=== PATIENT | female | born 1980 | race African-American/Black ===

== ENCOUNTER 2017-04-22 11:35 | Emergency (ER) | payer MEDICAID ==
[~2017-04-22 11:35] MED LIST: ALBU0.086 INH; ALBU6.7H INH; ALBU8I INH; PULM90IN
--- NOTE | 2017-04-22 13:11 | PD ---
HPI Date Seen: Apr 22, 2017 Time Seen: 13:00 Travel History International Travel<30 Days: No Contact w/Intl Traveler<30Days: No Known Affected Area: No History of Present Illness HPI Mrs. Sheffield is a 36-year-old at 29/6 weeks gestation presenting after referral by her provider after a concerning ultrasound result. States that she went to the [facility] center today ([facility]) where they said she needed to see Dr. Posada here at the hospital. She had an ultrasound done Friday in [place]. They said it was abnormal and that one twin was bigger. Otherwise she has no complaints. No leakage fluids, no contractions, no vaginal bleeding, no dysuria, no chest pain/shortness of breath/leg pain. Positive movement. Weeks Gestation: 29 Para: 3 : 4 History Past Medical History Narrative Medical Asthma Iron-deficiency anemia Obstetric History Obstetric History LMP September 30, 2016 First baby was term via , second baby was born at 35 weeks via due to labor, third baby was born term via Unsure of what control she use after delivery. Thinking about Nexplanon Past Surgical History Narrative Surgical [place] teeth extraction Family History Family History: Negative Social History Narrative Social History Lives with her and children in [place] Works at [employer] Denies alcohol, tobacco, or illicit drug use Alcohol Use: No Tobacco Use: No Substance Abuse: No Allergies-Medications (Allergen,Severity, Reaction): Coded Allergies: shellfish derived (Verified Allergy, Severe, throat swelling, 04/22/17) Uncoded Allergies: brazil nuts (Allergy, Severe, facial swelling, 04/22/17) Home Meds Active Scripts Albuterol Sulfate (Proventil Ud 0.083% (2.5 Mg/3 Ml)) 2.5 Mg/3 Ml Inha, 2.5 MG INH Q6 for WHEEZING, #30 Prov:Artur Back MD 07/29/13 Albuterol Sulfate (Proventil Hfa) 6.7 Gm Aero, 2 PUFF INH Q4 Y for WHEEZING, #1 * SHAKE WELL BEFORE USE * Prov:Artur Back MD 07/29/13 Reported Medications Albuterol Sulfate (Proventil Ud 0.083% (2.5 Mg/3 Ml)) 2.5 Mg/3 Ml Inha, 2.5 MG INH Q4, #30 BOX 07/29/13 Budesonide (Inhalation) (Pulmicort Flexhaler) 90 Mcg Inh 07/29/13 Albuterol Sulfate 8 GM Inhaler (Ventolin Hfa) 8 Gm Aero, 2 PUFF INH Q4, #1 BOX * SHAKE WELL BEFORE USE * 07/29/13 Review of Systems General / Constitutional: No: Fever, Chills Eyes: No: Blurred Vision HENT: No: Headaches Cardiovascular: No: Chest Pain or Discomfort, Palpitations Respiratory: No: Cough, Short of Breath Gastrointestinal: Nausea, No: Abdominal Pain Genitourinary: No: Dysuria Musculoskeletal: No: Weakness Skin: No Rash Neurologic: No: Dizziness, Syncope Physical Exam Narrative GENERAL: Well-nourished, well-developed patient. SKIN: Warm and dry. HEAD: Normocephalic and atraumatic. EYES: No scleral icterus. No injection or drainage. ENT: No nasal drainage noted. Mucous membranes pink. Airway patent. NECK: Supple, trachea midline. No JVD. CARDIOVASCULAR: Regular rate and rhythm without murmurs, gallops, or rubs. RESPIRATORY: Breath sounds equal bilaterally. No accessory muscle use. BREASTS: Bilateral exam showed no masses , no retractions, no nipple discharge. ABDOMEN/GI: Abdomen soft, non-tender, bowel sounds present, no rebound, no guarding Gravid to 29 weeks size FHT's: Category: 1 Baseline: 130s for both babies Reactive: yes Variability: moderate Decels: none EXTREMITIES: No cyanosis or edema. BACK: Nontender without obvious deformity. No CVA tenderness. NEUROLOGICAL: Awake and alert. Motor and sensory grossly within normal limits. Five out of 5 muscle strength in all muscle groups. Normal speech. Data Data Vital Signs Reviewed: Yes Orders Orders Vital Signs (Adult) .ON ADMISSION (04/22/17 12:25) ^ Labor Status (04/22/17 12:25) ^ Non Stress Test (04/22/17 12:25) Us Ob Bpp Wo Nst (04/22/17 12:25) MDM Plan Mrs. Sheffield is a 36-year-old at 29/6 weeks gestation presenting due to referral by provider. -FHT shows category 1 tracing -Diagnostic imaging report from 04/18/17 shows that Twin A had a estimated gestational age of 29/5 weeks. Twin B had a estimated gestational age of 20/5 weeks. -Will obtain new diagnostic ultrasound -Patient needs to be referred to [facility] due to advanced maternal age and multiples Disposition: 01 DISCHARGE HOME Condition: Stable Deb Powell MD R1 Apr 22, 2017 13:11
--- NOTE | 2017-04-22 16:35 | PD ---
History of Present Illness History of Present Illness [facility] Attending NST report Indications: IUP at 29 weeks, twin gestation, possible IUGR, advanced maternal age heart tones: FHT A 120s-130s with moderate long-term variability, good accelerations, no repetitive decelerations. heart tones are reassuring and appropriate for gestational age as well as reactive for gestational age. FHT B 130s with moderate long-term variability, good accelerations, no repetitive decelerations. heart tones are reassuring and appropriate for gestational age as well as reactive for gestational age Final Dx: IUP at 29 weeks, twin gestation, possible IUGR, advanced maternal age F/U: As per MF patient is to have twice weekly testing on Tuesdays and Fridays. She will be scheduled for biophysical profile in 3 days. In the meantime she's [facility] Dayami Posada MD Apr 22, 2017 16:35
--- NOTE | 2017-04-22 16:37 | PD ---
[facility] Plan BTL counseling Patient had indicated she was interested in permanent surgical sterilization. The patient is a 36-year-old and this is a 20 gestation . There is benefits and alternatives to permanent surgical sterilization were discussed with the patient including but not limited to the risk of tubal regret , the reversible and permanent nature of the procedure, risk of failure of approximately 1% with the associated risk of an ectopic that may require emergent intervention, and the inability have further biological children. We discussed alternatives at length including but not limited long- term reversible contraceptive methods. We discussed that the patient may change her mind any point up until the tubal ligation has been performed. We discussed that the tubal ligation could be performed at the time of delivery. We discussed that if she delivers vaginally she could elect to have the tubal ligation as an interval procedure. All of her questions were answered and the tubal consent was signed today. The patient was given 2 photocopies and a copy is to be faxed to her primary obstetrical office as well as scanned into the computer. We discussed that the state requires tubal papers to be signed greater than 30 days in advance that if she has not signed the papers in this manner time she will be ineligible for a tubal ligation. She did sign the papers today as noted above. Diagnosis Diagnosis: Primary Impression: 29 weeks gestation of Additional Impressions: IUGR (intrauterine growth restriction) affecting care of mother Twin Disposition: 01 DISCHARGE HOME Condition: Good Patient Instructions: General Instructions Departure Forms: Tests/Procedures Dayami Posada MD Apr 22, 2017 16:37
== END 2017-04-22 16:44 | disposition home or self-care (01) ==
LOC: HOBED 11:35
DX: O36.5930 Maternal care for other known or suspected poor fetal growth, third trimester, not applicable or unspecified (principal); O30.003 Twin pregnancy, unspecified number of placenta and unspecified number of amniotic sacs, third trimester; O09.523 Supervision of elderly multigravida, third trimester; Z3A.29 29 weeks gestation of pregnancy
CPT/HCPCS: 76816; 76819; 76820; 76821; 99284

== ENCOUNTER 2017-04-25 12:24 | Emergency (ER) | payer MEDICAID ==
--- NOTE | 2017-04-25 13:37 | PD ---
HPI Chief Complaint deceleration Date Seen: Apr 25, 2017 Time Seen: 13:15 (Deb Powell MD R1) Travel History International Travel<30 Days: No Contact w/Intl Traveler<30Days: No Known Affected Area: No (Deb Powell MD R1) History of Present Illness HPI Mrs. Sheffield is a 36-year-old at 30/2 weeks gestation presenting due to variable decelerations of twin A at OB diagnostics. She was just seen in the ED on 04/22 due to inconsistent states between twin A and twin B on an ultrasound done outside hospital. Diagnostic report at that time, 04/22, showed both twins measuring at about 28 weeks. Diagnosis of IUGR versus wrong dates. The patient has no complaints at this time. No vaginal bleeding, no leakage of fluids, no contractions, no dysuria, no chest pain/shortness of breath/leg pain. She does have positive movement Weeks Gestation: 30 Para: 3 : 4 Last Menstrual Period: Sep 25, 2016 (Deb Powell MD R1) History Past Medical History Narrative Medical Asthma Iron deficiency anemia (Deb Powell MD R1) Obstetric History Obstetric History All vaginal deliveries Last menstrual period September 25, 2016 (Deb Powell MD R1) Past Surgical History Narrative Surgical [place] teeth extraction (Deb Powell MD) Family History Family History: Negative (Deb Powell MD) Social History Narrative Social History Lives with and her children in [place] Works at [employer] Denies alcohol, tobacco, or illicit drug use Alcohol Use: No Tobacco Use: No Substance Abuse: No (Deb Powell MD R1) Allergies-Medications (Allergen,Severity, Reaction): Coded Allergies: shellfish derived (Verified Allergy, Severe, throat swelling, 04/22/17) Uncoded Allergies: brazil nuts (Allergy, Severe, facial swelling, 04/22/17) Home Meds Active Scripts Albuterol Sulfate (Proventil Ud 0.083% (2.5 Mg/3 Ml)) 2.5 Mg/3 Ml Inha, 2.5 MG INH Q6 for WHEEZING, #30 Prov:Artur Back MD 07/29/13 Albuterol Sulfate (Proventil Hfa) 6.7 Gm Aero, 2 PUFF INH Q4 Y for WHEEZING, #1 * SHAKE WELL BEFORE USE * Prov:Artur Back MD 07/29/13 Reported Medications Albuterol Sulfate (Proventil Ud 0.083% (2.5 Mg/3 Ml)) 2.5 Mg/3 Ml Inha, 2.5 MG INH Q4, #30 BOX 07/29/13 Budesonide (Inhalation) (Pulmicort Flexhaler) 90 Mcg Inh 07/29/13 Albuterol Sulfate 8 GM Inhaler (Ventolin Hfa) 8 Gm Aero, 2 PUFF INH Q4, #1 BOX * SHAKE WELL BEFORE USE * 07/29/13 Review of Systems General / Constitutional: No: Fever Eyes: No: Blurred Vision HENT: No: Headaches Cardiovascular: No: Chest Pain or Discomfort, Palpitations Respiratory: No: Cough, Short of Breath Gastrointestinal: No: Diarrhea, Constipation Genitourinary: No: Dysuria Musculoskeletal: No: Weakness Skin: No Rash Neurologic: No: Dizziness (Deb Powell MD R1) Physical Exam Narrative GENERAL: Well-nourished, well-developed patient. SKIN: Warm and dry. HEAD: Normocephalic and atraumatic. EYES: No scleral icterus. No injection or drainage. ENT: No nasal drainage noted. Mucous membranes pink. Airway patent. NECK: Supple, trachea midline. No JVD. CARDIOVASCULAR: Regular rate and rhythm without murmurs, gallops, or rubs. RESPIRATORY: Breath sounds equal bilaterally. No accessory muscle use. BREASTS: Bilateral exam showed no masses , no retractions, no nipple discharge. ABDOMEN/GI: Abdomen soft, non-tender, bowel sounds present, no rebound, no guarding Gravid to 30 weeks size FHT's: Category: 1 Baseline: 140s Reactive: yes Variability: moderate Decels: none EXTREMITIES: No cyanosis or edema. BACK: Nontender without obvious deformity. No CVA tenderness. NEUROLOGICAL: Awake and alert. Motor and sensory grossly within normal limits. Five out of 5 muscle strength in all muscle groups. Normal speech. (Deb Powell MD R1) Data Data Vital Signs Reviewed: Yes (Deb Powell MD R1) MDM Plan 36-year-old at 30/2 weeks visiting after variable decelerations found on twin A at [facility]. -BPP of twin A and B were 10/10 on today, dates at ultrasound on 04/22 shows about 28 weeks for each twin -FHT is reassuring, shows category 1 tracing -Will conduct continuous monitoring. Continued to be reassuring, will d/c home (Deb Powell MD R1) Attending Attestation Patient seen and evaluated with resident under direct supervision, agree with assessment and plan. (Junior Don MD) Disposition: 01 DISCHARGE HOME Condition: Stable Deb Powell MD R1 Apr 25, 2017 13:37 Junior Don MD Apr 25, 2017 14:52
--- NOTE | 2017-04-25 15:10 | PD ---
MDM Plan See previous note (Deb Powell MD R1) Attending Attestation Patient seen and evaluated with resident under direct supervision, agree with assessment and plan. (Junior Don MD) Diagnosis Diagnosis: Primary Impression: 30 weeks gestation of Additional Impression: Twin Qualified Codes: O30.043 - Twin , dichorionic/diamniotic, third trimester Disposition: 01 DISCHARGE HOME Condition: Stable Patient Instructions: General Instructions, Labor (ED), Movement (ED) Departure Forms: Tests/Procedures Deb Powell MD R1 Apr 25, 2017 15:09 Junior Don MD Apr 27, 2017 10:05
== END 2017-04-25 15:10 | disposition home or self-care (01) ==
LOC: HOBED 12:24
DX: O30.003 Twin pregnancy, unspecified number of placenta and unspecified number of amniotic sacs, third trimester (principal); O99.513 Diseases of the respiratory system complicating pregnancy, third trimester; J45.909 Unspecified asthma, uncomplicated; Z3A.28 28 weeks gestation of pregnancy; Z79.51 Long term (current) use of inhaled steroids
CPT/HCPCS: 99283

== ENCOUNTER 2017-04-29 14:16 | Emergency (ER) | payer MEDICAID ==
--- NOTE | 2017-04-29 15:18 | PD ---
HPI Chief Complaint extended monitoring Date Seen: Apr 29, 2017 Time Seen: 14:50 Travel History International Travel<30 Days: No Contact w/Intl Traveler<30Days: No History of Present Illness HPI Mrs. Sheffield is a 36-year-old at 30/6 weeks gestation presenting due to deceleration down to the 100s for one of the twins. Unsure if Twin A or B. Was recommended by MFM for extended monitoring. She has had no leakage of fluids, no contractions, no vaginal bleeding, no dysuria, no chest pain, no shortness of breath, no leg pain. She has felt movement. Weeks Gestation: 30 Para: 3 : 4 History Past Medical History Narrative Medical Asthma Iron deficiency anemia Obstetric History Obstetric History All vaginal deliveries Last menstrual period September 25, 2016 Past Surgical History Narrative Surgical [place] teeth extraction Family History Family History: Negative Social History Narrative Social History Lives with and her children in [place] Works at [employer] Denies alcohol, tobacco, or illicit drug use Alcohol Use: No Tobacco Use: No Substance Abuse: No Allergies-Medications (Allergen,Severity, Reaction): Coded Allergies: shellfish derived (Verified Allergy, Severe, throat swelling, 04/22/17) Uncoded Allergies: brazil nuts (Allergy, Severe, facial swelling, 04/22/17) Home Meds Active Scripts Albuterol Sulfate (Proventil Ud 0.083% (2.5 Mg/3 Ml)) 2.5 Mg/3 Ml Inha, 2.5 MG INH Q6 for WHEEZING, #30 Prov:Artur Back MD 07/29/13 Albuterol Sulfate (Proventil Hfa) 6.7 Gm Aero, 2 PUFF INH Q4 Y for WHEEZING, #1 * SHAKE WELL BEFORE USE * Prov:Artur Back MD 07/29/13 Reported Medications Albuterol Sulfate (Proventil Ud 0.083% (2.5 Mg/3 Ml)) 2.5 Mg/3 Ml Inha, 2.5 MG INH Q4, #30 BOX 07/29/13 Budesonide (Inhalation) (Pulmicort Flexhaler) 90 Mcg Inh 07/29/13 Albuterol Sulfate 8 GM Inhaler (Ventolin Hfa) 8 Gm Aero, 2 PUFF INH Q4, #1 BOX * SHAKE WELL BEFORE USE * 07/29/13 Review of Systems General / Constitutional: No: Fever, Chills Eyes: No: Blurred Vision HENT: No: Headaches Cardiovascular: No: Chest Pain or Discomfort, Palpitations Respiratory: No: Short of Breath Gastrointestinal: No: Diarrhea, Constipation Genitourinary: No: Dysuria Musculoskeletal: No: Weakness Skin: No Rash Neurologic: No: Dizziness Physical Exam Narrative GENERAL: Well-nourished, well-developed patient. SKIN: Warm and dry. HEAD: Normocephalic and atraumatic. EYES: No scleral icterus. No injection or drainage. ENT: No nasal drainage noted. Mucous membranes pink. Airway patent. NECK: Supple, trachea midline. No JVD. CARDIOVASCULAR: Regular rate and rhythm without murmurs, gallops, or rubs. RESPIRATORY: Breath sounds equal bilaterally. No accessory muscle use. BREASTS: Bilateral exam showed no masses , no retractions, no nipple discharge. ABDOMEN/GI: Abdomen soft, non-tender, bowel sounds present, no rebound, no guarding Gravid to 30 weeks size FHT's: Category: 1 Baseline: 130-140s for both twins Reactive: yes Variability: moderate Decels: none EXTREMITIES: No cyanosis or edema. BACK: Nontender without obvious deformity. No CVA tenderness. NEUROLOGICAL: Awake and alert. Motor and sensory grossly within normal limits. Five out of 5 muscle strength in all muscle groups. Normal speech. MDM Plan 36-year-old at 30/6 weeks visiting after decelerations found on one of the twins at [facility]. -BPP of twin A was 10/10 and twin B was 8/10 on today, dates at ultrasound on 04/22 shows about 28 weeks for each twin -FHT is reassuring, shows category 1 tracing -Will conduct continuous monitoring. Diagnosis Diagnosis: Primary Impression: 30 weeks gestation of Disposition: DISCHARGE HOME Condition: Stable Deb Powell MD R1 Apr 29, 2017 15:18
== END 2017-04-29 16:42 | disposition home or self-care (01) ==
LOC: HOBED 14:16
DX: O26.93 Pregnancy related conditions, unspecified, third trimester (principal); Z3A.30 30 weeks gestation of pregnancy; J45.909 Unspecified asthma, uncomplicated; Z91.018 Allergy to other foods; Z91.013 Allergy to seafood
CPT/HCPCS: 99283

== ENCOUNTER 2017-05-14 14:07 | Observation (INO) | payer MEDICAID ==
[2017-05-14] VITALS (8 sets, daily range): BP systolic 106–119; BP diastolic 54–70; PULSE 90–98; RESP 18–24; O2SAT 99
--- NOTE | 2017-05-14 15:16 | PD ---
HPI Chief Complaint SOB, Anemia Date Seen: May 14, 2017 Travel History International Travel<30 Days: No Contact w/Intl Traveler<30Days: No History of Present Illness HPI Ms. Sheffield is a 36 y/o with twin gestation presenting at 33/0 weeks gestation for SOB. She states that her SOB has dramatically increased over the last couple of days. [facility] and has only had one visit thus far. Yesterday at her appointment with [facility] she reports that she had a hemoglobin of 6.5. She called the office and was told to report to the hospital yesterday, but was unable to do so due to social constrictions. Currently she is in mild respiratory distress and able to converse in short, complete sentences. She endorses good overall movement , but recently they have "not been as active." She denies any loss of fluid, bleeding, discharge, or dysuria. Otherwise she has no complaints and denies any recent fevers, chills, chest pain, NVD, ABD pain, or calf tenderness. Weeks Gestation: 33 Para: 3 : 4 History Past Medical History Narrative Medical Per chart review, patient previously on Albuterol and Pulmicort showing possible previous lung disease Medical History: Denies Significant Hx Obstetric History Obstetric History One 35 week delivered without complication Two uncomplicated SVDs at full term Patient endorses having anemia throughout all pregnancies and previously required iron transfusions Past Surgical History Surgical History: No Previous Surgery Family History Family History: Negative Social History Alcohol Use: No Tobacco Use: No Substance Abuse: No Allergies-Medications (Allergen,Severity, Reaction): Coded Allergies: shellfish derived (Verified Allergy, Severe, throat swelling, 04/22/17) Uncoded Allergies: brazil nuts (Allergy, Severe, facial swelling, 04/22/17) Home Meds Active Scripts Albuterol Sulfate (Proventil Ud 0.083% (2.5 Mg/3 Ml)) 2.5 Mg/3 Ml Inha, 2.5 MG INH Q6 for WHEEZING, #30 Prov:Artur Back MD 07/29/13 Albuterol Sulfate (Proventil Hfa) 6.7 Gm Aero, 2 PUFF INH Q4 Y for WHEEZING, #1 * SHAKE WELL BEFORE USE * Prov:Artur Back MD 07/29/13 Reported Medications Albuterol Sulfate (Proventil Ud 0.083% (2.5 Mg/3 Ml)) 2.5 Mg/3 Ml Inha, 2.5 MG INH Q4, #30 BOX 07/29/13 Budesonide (Inhalation) (Pulmicort Flexhaler) 90 Mcg Inh 07/29/13 Albuterol Sulfate 8 GM Inhaler (Ventolin Hfa) 8 Gm Aero, 2 PUFF INH Q4, #1 BOX * SHAKE WELL BEFORE USE * 07/29/13 Review of Systems Except as stated in HPI: all other systems reviewed are Neg (Per HPI) Physical Exam Narrative GENERAL: Well-nourished, well-developed patient. SKIN: Warm and dry. Mild diaphoresis HEAD: Normocephalic and atraumatic. EYES: No scleral icterus. No injection or drainage. ENT: No nasal drainage noted. Mucous membranes pink. Airway patent. NECK: Supple, trachea midline. No JVD. CARDIOVASCULAR: Tachycardic rate and rhythm without murmurs, gallops, or rubs. RESPIRATORY: Breath sounds equal bilaterally. No accessory muscle use. ABDOMEN/GI: Abdomen soft, non-tender, bowel sounds present, no rebound, no guarding Gravid to 33 weeks size FHT's: Category: 1 Baseline: A 140s, B 140s Reactive: Positive Variability: Moderate Decels: None EXTREMITIES: No cyanosis or edema. Negative Darren's signs BL. Mild calf tenderness BL. BACK: Nontender without obvious deformity. No CVA tenderness. NEUROLOGICAL: Awake and alert. Motor and sensory grossly within normal limits. Five out of 5 muscle strength in all muscle groups. Normal speech. Data Data Vital Signs Reviewed: Yes Orders Orders Vital Signs (Adult) .ON ADMISSION (05/14/17 14:59) ^ Labor Status (05/14/17 14:59) ^ Non Stress Test (05/14/17 14:59) ^ Hydration (05/14/17 14:59) Cbc No Diff, Includes Plts (05/14/17 14:59) Iron/Tibc Profile (05/14/17 14:59) [facility] Medical Record Reviewed: Yes Plan Ms. Sheffield is a 36 y/o with twin gestation presenting at 33/0 weeks gestation for SOB. 1. IUP with twin gestation at 33 weeks -Continue routine antepartum care -Encourage oral hydration, PNV -FHT category 1 for both babies, reassuring 2. Anemia -CBC and Iron profile ordered -Per chart review, patient with H/H of 7.2/23.8 on 04/17/17 -Hbg 6.5 at [facility] appointment per patient SDW: Dr. Landon Update: Twin A with 3min deceleration during monitoring, otherwise patient remains unchanged. DW with [facility] who recommends PE evaluation at this time, orders placed. Per chart review, patient also has a history of lung disease as she has been previously prescribed Albuterol and Pulmicort. Patient to be admitted to observation at this time. 1. SOB -EKG -ABG -CTA -PIH labs: CMP, UA, P/C ratio, and uric acid -BL LE dopplers Diagnosis Diagnosis: Primary Impression: 33 weeks gestation of Additional Impressions: Twin gestation with fourth Anemia affecting fourth Condition: Stable Patient Instructions: General Instructions, Movement (ED), Abdominal Pain in (ED) Tu Sheffield MD R2 May 14, 2017 15:16
[2017-05-14 16:02] LABS: HEMATOCRIT 23.1 % (35.0-46.0); HEMOGLOBIN 7.1 GM/DL (11.6-15.3); MEAN CORPUSCULAR HEMOGLOBIN 22.2 PG (27.0-34.0); MEAN CORPUSCULAR HGB CONC 30.9 % (32.0-36.0); MEAN PLATELET VOLUME 8.1 FL (7.0-11.0); PLATELET COUNT 275 TH/MM3 (150-450); RED CELL DISTRIBUTION WIDTH 21.3 % (11.6-17.2); WHITE BLOOD COUNT 8.1 TH/MM3 (4.0-11.0)
[2017-05-14] MEDS ORDERED: ONDANSETRON ODT 4 MG TAB PO ONE (16:15)
[2017-05-14 16:21] LABS: % SATURATION IRON PROFILE 7.5 % (20-50); IRON (FE) 47 MCG/DL (50-170); TOTAL IRON BINDING CAPACITY 629 MCG/DL (250-450)
--- NOTE | 2017-05-14 16:54 | HHI.HP ---
History & Physical H&P HPI Chief Complaint SOB, Anemia Date Seen: May 14, 2017 Travel History International Travel<30 Days: No Contact w/Intl Traveler<30Days: No History of Present Illness HPI Ms. Sheffield is a 36 y/o with twin gestation presenting at 33/0 weeks gestation for SOB. She states that her SOB has dramatically increased over the last couple of days. She [facility] and has only had one visit thus far. Yesterday at her appointment with [facility] she reports that she had a hemoglobin of 6.5. She called the office and was told to report to the hospital yesterday, but was unable to do so due to social constrictions. Currently she is in mild respiratory distress and able to converse in short, complete sentences. She endorses good overall movement , but recently they have "not been as active." She denies any loss of fluid, bleeding, discharge, or dysuria. Otherwise she has no complaints and denies any recent fevers, chills, chest pain, NVD, ABD pain, or calf tenderness. Weeks Gestation: 33 Para: 3 : 4 History (Limited) History Past Medical History Narrative Medical Per chart review, patient previously on Albuterol and Pulmicort showing possible previous lung disease Medical History: Denies Significant Hx Obstetric History Obstetric History One 35 week delivered without complication Two uncomplicated SVDs at full term Patient endorses having anemia throughout all pregnancies and previously required iron transfusions Past Surgical History Surgical History: No Previous Surgery Family History Family History: Negative Social History Alcohol Use: No Tobacco Use: No Substance Abuse: No Allergies-Medications Allergies-Medications (Allergen,Severity, Reaction): Coded Allergies: shellfish derived (Verified Allergy, Severe, throat swelling, 04/22/17) Uncoded Allergies: brazil nuts (Allergy, Severe, facial swelling, 04/22/17) Home Meds Active Scripts Albuterol Sulfate (Proventil Ud 0.083% (2.5 Mg/3 Ml)) 2.5 Mg/3 Ml Inha, 2.5 MG INH Q6 for WHEEZING, #30 Prov:Artur Back MD 07/29/13 Albuterol Sulfate (Proventil Hfa) 6.7 Gm Aero, 2 PUFF INH Q4 Y for WHEEZING, #1 * SHAKE WELL BEFORE USE * Prov:Artur Back MD 07/29/13 Reported Medications Albuterol Sulfate (Proventil Ud 0.083% (2.5 Mg/3 Ml)) 2.5 Mg/3 Ml Inha, 2.5 MG INH Q4, #30 BOX 07/29/13 Budesonide (Inhalation) (Pulmicort Flexhaler) 90 Mcg Inh 07/29/13 Albuterol Sulfate 8 GM Inhaler (Ventolin Hfa) 8 Gm Aero, 2 PUFF INH Q4, #1 BOX * SHAKE WELL BEFORE USE * 07/29/13 ROS Review of Systems Except as stated in HPI: all other systems reviewed are Neg (Per HPI) Physical Exam Physical Exam Narrative GENERAL: Well-nourished, well-developed patient. SKIN: Warm and dry. Mild diaphoresis HEAD: Normocephalic and atraumatic. EYES: No scleral icterus. No injection or drainage. ENT: No nasal drainage noted. Mucous membranes pink. Airway patent. NECK: Supple, trachea midline. No JVD. CARDIOVASCULAR: Tachycardic rate and rhythm without murmurs, gallops, or rubs. RESPIRATORY: Breath sounds equal bilaterally. No accessory muscle use. ABDOMEN/GI: Abdomen soft, non-tender, bowel sounds present, no rebound, no guarding Gravid to 33 weeks size FHT's: Category: 1 Baseline: A 140s, B 140s Reactive: Positive Variability: Moderate Decels: None EXTREMITIES: No cyanosis or edema. Negative Darren's signs BL. Mild calf tenderness BL. BACK: Nontender without obvious deformity. No CVA tenderness. NEUROLOGICAL: Awake and alert. Motor and sensory grossly within normal limits. Five out of 5 muscle strength in all muscle groups. Normal speech. Data Data Data Vital Signs Reviewed: Yes Orders Orders Vital Signs (Adult) .ON ADMISSION (05/14/17 14:59) ^ Labor Status (05/14/17 14:59) ^ Non Stress Test (05/14/17 14:59) ^ Hydration (05/14/17 14:59) Cbc No Diff, Includes Plts (05/14/17 14:59) Iron/Tibc Profile (05/14/17 14:59) [facility] Medical Record Reviewed: Yes Plan Ms. Sheffield is a 36 y/o with twin gestation presenting at 33/0 weeks gestation for SOB. 1. IUP with twin gestation at 33 weeks -Continue routine antepartum care -Encourage oral hydration, PNV -FHT category 1 for both babies, reassuring 2. Anemia -CBC and Iron profile ordered -Per chart review, patient with H/H of 7.2/23.8 on 04/17/17 -Hbg 6.5 at [facility] appointment per patient SDW: Dr. Landon Update: Twin A with 3min deceleration during monitoring, otherwise patient remains unchanged. DW with MFM who recommends PE evaluation at this time, orders placed. Per chart review, patient also has a history of lung disease as she has been previously prescribed Albuterol and Pulmicort. Patient to be admitted to observation at this time. 1. SOB -EKG -ABG -CTA -PIH labs: CMP, UA, P/C ratio, and uric acid -BL LE dopplers Diagnosis Diagnosis: Primary Impression: 33 weeks gestation of Additional Impressions: Twin gestation with fourth Anemia affecting fourth Condition: Stable Patient Instructions: General Instructions, Movement (ED), Abdominal Pain in (ED) Tu Sheffield MD R2 Tu Sheffield MD R2 May 14, 2017 16:54
[2017-05-14] MEDS ORDERED: SODIUM CHLORIDE 0.9% FLUSH 10 ML FLUSH IV FLUSH PRN (17:00)
[2017-05-14] MEDS ORDERED: ONDANSETRON HCL 4 MG/2 ML VIAL IV PUSH PRN (17:00)
[2017-05-14 17:22] LABS: ALBUMIN 2.4 GM/DL (3.4-5.0); AST (GOT) 20 U/L (15-37); BICARBONATE 23.1 MEQ/L (21.0-32.0); BLOOD UREA NITROGEN 4 MG/DL (7-18); CALCIUM 8.5 MG/DL (8.5-10.1); CHLORIDE 104 MEQ/L (98-107); CREATININE 0.73 MG/DL (0.50-1.00); GLOMERULAR FILTRATION RATE 109 ML/MIN (>89); GLUCOSE,RANDOM 100 MG/DL (74-106); SODIUM (NA) 137 MEQ/L (136-145)
[2017-05-14 17:23] LABS: ALT (GPT) 14 U/L (10-53)
[2017-05-14 17:25] LABS: ALKALINE PHOSPHATASE 92 U/L (45-117); TOTAL BILIRUBIN ADULT 0.4 MG/DL (0.2-1.0); TOTAL PROTEIN 6.6 GM/DL (6.4-8.2)
[2017-05-14] MEDS ORDERED: IOHEXOL 350 MG/ML 10 ML VIAL (for RAD DIAG) IVCONTRAST ONE (18:10)
--- NOTE | 2017-05-14 18:10 | RADRPT ---
EXAM DATE/TIME: 05/14/2017 17:56 [facility] COMPARISON: No previous studies available for comparison. INDICATIONS : Shortness of breath and chest pain 33 weeks . IV CONTRAST: 75 cc Omnipaque 350 (iohexol) IV RADIATION DOSE: 22.89 CTDIvol (mGy) MEDICAL HISTORY : None SURGICAL HISTORY : None. ENCOUNTER: Initial ACUITY: 1 day PAIN SCALE: 4/10 LOCATION: Bilateral chest TECHNIQUE: Volumetric scanning of the chest was performed using a pulmonary embolism protocol MIP images were re constructed. Using automated exposure control and adjustment of the mA and/or kV according to patien t size, radiation dose was kept as low as reasonably achievable to obtain optimal diagnostic quality images. DICOM format image data is available electronically for review and comparison. Follow-up recommendations for detected pulmonary nodules are based at a minimum on nodule size and pa tient risk factors according to Fleischner Society Guidelines. FINDINGS: PULMONARY ARTERIES: No filling defects are seen in the pulmonary arteries through the segmental level. LUNGS: There is no consolidation or pneumothorax . No concerning pulmonary nodule is visualized. PLEURAE: There is no pleural thickening or pleural effusion. MEDIASTINUM: There is good visualization of the great vessels of the middle mediastinum. No evidence of mediastin al or hilar adenopathy/mass. MUSCULOSKELETAL: Within normal limits for patient age. MISCELLANEOUS: The visualized upper abdominal organs demonstrate no acute abnormality. There is a 17 mm left thyroid nodule. CONCLUSION: 1. No evidence of pulmonary embolism. 2. 17 mm left thyroid nodule. Jaden Sharif MD on May 14, 2017 at 18:06 Board Certified Radiologist. This report was verified electronically.
--- NOTE | 2017-05-14 19:03 | RADRPT ---
EXAM DATE/TIME: 05/14/2017 18:18 [facility] COMPARISON: No previous studies available for comparison. INDICATIONS : Respiratory distress. MEDICAL HISTORY : . Shortness of breath. Currently 33 week with twins. SURGICAL HISTORY : None. ENCOUNTER: Initial ACUITY: 1 day PAIN SCORE: 0/10 LOCATION: Bilateral legs. TECHNIQUE: Venous ultrasound of the left and right leg was performed from the inguinal ligament to the proximal calf. Real-time, color Doppler and spectral tracing, compression and augmentation techniques were us ed. FINDINGS: RIGHT LEG: There is normal compressibility of the deep venous system from the inguinal region to the proximal ca lf. No echogenic clot is seen in the lumen of the common femoral, femoral, popliteal, and posterior tibial veins. There is a normal response of the venous system to proximal and distal augmentation an d respiration. LEFT LEG: There is normal compressibility of the deep venous system from the inguinal region to the proximal ca lf. No echogenic clot is seen in the lumen of the common femoral, femoral, popliteal, and posterior tibial veins. There is a normal response of the venous system to proximal and distal augmentation an d respiration. CONCLUSION: No evidence of deep venous thrombosis within the lower extremities. Jaden Sharif MD on May 14, 2017 at 19:02 Board Certified Radiologist. This report was verified electronically.
[2017-05-14] MEDS: BETAMETHASONE SOD PHOS/ACETATE SUSP 30 MG/5 ML VIAL IM SCH (19:45)
[2017-05-14 20:01] LABS: BACTERIA, URINE RARE /hpf; BILIRUBIN, URINE NEG (NEG); BLOOD, URINE NEG (NEG); GLUCOSE,URINE NEG (NEG); KETONE, URINE NEG (NEG); NITRITE,URINE NEG (NEG); SQUAMOUS EPITHELIAL CELL URINE 4 /hpf (0-5); URINE COLOR LIGHT-YELLOW (YELLW/STRAW); URINE LEUKOCYTE ESTERASE NEG (NEG)
--- NOTE | 2017-05-14 20:02 | PD.OB.ANTE ---
Subjective Diagnosis: (1) 33 weeks gestation of Diagnosis: Principal (2) Twin gestation with fourth Diagnosis: Principal (3) Anemia affecting fourth Diagnosis: Principal Interval History pt. in bed w/o c/o. per recommendation of [facility] Dr. Eugene, pt. have work up for pe. pt. have ct scan of chest which show no pe. pt. also have doppler u/s of bilat le wnl. pt. have lab draw wnl except for abnl iron studies. pt. to begin po ferrous sulfate. fht show mod violet and accels, but cat 2/2 baby a have multiple decels. pt. seen by [facility] last week and had extended monitoring 04/18 to same phenom. pt. to monitoresd overnight. pt. to have betamethasone for lung maturity. Will continue to follow. Objective Vital Signs Vital Signs Date Time Temp Pulse Resp B/P (MAP) Pulse Ox O2 Delivery O2 Flow Rate FiO2 05/14/17 16:40 18 05/14/17 16:36 94 119/69 (86) 05/14/17 16:35 92 05/14/17 16:30 98 Lab & Micro Results Test 05/14/17 15:05 05/14/17 16:39 05/14/17 17:00 White Blood Count 8.1 TH/MM3 Red Blood Count 3.20 MIL/MM3 Hemoglobin 7.1 GM/DL Hematocrit 23.1 % Mean Corpuscular Volume 72.0 FL Mean Corpuscular Hemoglobin 22.2 PG Mean Corpuscular Hemoglobin Concent 30.9 % Red Cell Distribution Width 21.3 % Platelet Count 275 TH/MM3 Mean Platelet Volume 8.1 FL Iron Level 47 MCG/DL Total Iron Binding Capacity 629 MCG/DL Percent Iron Saturation 7.5 % Blood Urea Nitrogen 4 MG/DL Creatinine 0.73 MG/DL Random Glucose 100 MG/DL Total Protein 6.6 GM/DL Albumin 2.4 GM/DL Calcium Level 8.5 MG/DL Uric Acid 4.9 MG/DL Alkaline Phosphatase 92 U/L Aspartate Amino Transf (AST/SGOT) 20 U/L Alanine Aminotransferase (ALT/SGPT) 14 U/L Total Bilirubin 0.4 MG/DL Sodium Level 137 MEQ/L Potassium Level 3.2 MEQ/L Chloride Level 104 MEQ/L Carbon Dioxide Level 23.1 MEQ/L Anion Gap 10 MEQ/L Estimat Glomerular Filtration Rate 109 ML/MIN Physical Exam GENERAL: Well-nourished, well-developed patient. CARDIOVASCULAR: Regular rate and rhythm without murmurs, gallops, or rubs. RESPIRATORY: Breath sounds equal bilaterally. No accessory muscle use. ABDOMEN/GI: Abdomen soft, non-tender. gravid GENITOURINARY: FHT's: Category:2 x (A), cat 1 (B)] Reactive: + X 2 Variability: mod Decels: violet for baby A EXTREMITIES: No cyanosis or edema, non-tender, without signs of DVT. Assessment and Plan Assessment and Plan pt. to monitored overnight. pt. to have betamethasone for lung maturity. Will continue to follow. Alex Landon Jr., MD May 14, 2017 20:02
[2017-05-14] MEDS ORDERED: SODIUM CHLORIDE 0.9% FLUSH 10 ML FLUSH IV FLUSH SCH (21:00)
[2017-05-15 00:23] VITALS: BP 107/56; PULSE 105
[2017-05-15 02:15] VITALS: O2SAT 98
[2017-05-15] MEDS: BETAMETHASONE SOD PHOS/ACETATE SUSP 30 MG/5 ML VIAL IM SCH (08:14)
[2017-05-15] MEDS: RESP: ALBUTEROL 2.5 MG/IPRATROPIUM 0.5 MG NEB (PRN) NEB ×2 (08:42→14:46)
--- NOTE | 2017-05-15 10:07 | PD.OB.ANTE ---
Subjective Diagnosis: (1) 33 weeks gestation of Diagnosis: Principal (2) Twin gestation with fourth Diagnosis: Principal (3) Anemia affecting fourth Diagnosis: Principal Interval History Patient seen and examined this morning. Patient reports she had some shortness of breath last night however she has been breathing better today since she had a breathing treatment. Yesterday she was unable to complete full sentences, can complete full sentences today. Denies nausea, vomiting, fever, chills, chest pain. Reports she had contractions approximately once every half hour. Reports normal whitish discharge of fluid, denies bloody discharge, other colors or malodorous smells. Denies hematuria, dysuria, frequency, change in color or smell. No other complaints today. Objective Vital Signs Vital Signs Date Time Temp Pulse Resp B/P (MAP) Pulse Ox O2 Delivery O2 Flow Rate FiO2 05/15/17 02:15 98 05/15/17 00:23 105 107/56 (73) 05/14/17 23:53 24 05/14/17 21:05 99 05/14/17 19:44 91 108/70 (83) 05/14/17 19:08 90 106/54 (71) 05/14/17 16:40 18 05/14/17 16:36 94 119/69 (86) 05/14/17 16:35 92 05/14/17 16:30 98 Lab & Micro Results Test 05/14/17 15:05 05/14/17 16:39 05/14/17 17:00 White Blood Count 8.1 TH/MM3 Red Blood Count 3.20 MIL/MM3 Hemoglobin 7.1 GM/DL Hematocrit 23.1 % Mean Corpuscular Volume 72.0 FL Mean Corpuscular Hemoglobin 22.2 PG Mean Corpuscular Hemoglobin Concent 30.9 % Red Cell Distribution Width 21.3 % Platelet Count 275 TH/MM3 Mean Platelet Volume 8.1 FL Iron Level 47 MCG/DL Total Iron Binding Capacity 629 MCG/DL Percent Iron Saturation 7.5 % Blood Urea Nitrogen 4 MG/DL Creatinine 0.73 MG/DL Random Glucose 100 MG/DL Total Protein 6.6 GM/DL Albumin 2.4 GM/DL Calcium Level 8.5 MG/DL Uric Acid 4.9 MG/DL Alkaline Phosphatase 92 U/L Aspartate Amino Transf (AST/SGOT) 20 U/L Alanine Aminotransferase (ALT/SGPT) 14 U/L Total Bilirubin 0.4 MG/DL Sodium Level 137 MEQ/L Potassium Level 3.2 MEQ/L Chloride Level 104 MEQ/L Carbon Dioxide Level 23.1 MEQ/L Anion Gap 10 MEQ/L Estimat Glomerular Filtration Rate 109 ML/MIN Urine Color LIGHT-YELLOW Urine Turbidity CLEAR Urine pH 7.0 Urine Specific [place] 1.004 Urine Protein NEG mg/dL Urine Glucose (UA) NEG mg/dL Urine Ketones NEG mg/dL Urine Occult Blood NEG Urine Nitrite NEG Urine Bilirubin NEG Urine Urobilinogen LESS THAN 2.0 MG/DL Urine Leukocyte Esterase NEG Urine RBC LESS THAN 1 /hpf Urine WBC LESS THAN 1 /hpf Urine Squamous Epithelial Cells 4 /hpf Urine Bacteria RARE /hpf Microscopic Urinalysis Comment CULT NOT INDICATED Urine Random Creatinine 43 MG/DL Urine Random Total Protein 7 MG/DL Urine Protein/Creatinine Ratio 0.16 Physical Exam GENERAL: Well-nourished, well-developed patient. CARDIOVASCULAR: Regular rate and rhythm without murmurs, gallops, or rubs. RESPIRATORY: Breath sounds equal bilaterally. No wheezes, rhonchi, rales. No accessory muscle use. ABDOMEN/GI: Abdomen soft, non-tender. GENITOURINARY: External Genitalia: intact and normal in appearance FHT's:A Category: 2 Baseline: 135 Reactive: Yes Variability: Moderate Decels: Rare variable FHT's:B Category: 2 Baseline: 130 Reactive: Yes Variability: Moderate Decels: Rare variable EXTREMITIES: No cyanosis or edema, non-tender, without signs of DVT. Assessment and Plan Problem List: (1) 33 weeks gestation of ICD Codes: Z3A.33 - 33 weeks gestation of Status: Acute (2) Twin gestation with fourth ICD Codes: O30.009 - Twin , unspecified number of placenta and unspecified number of amniotic sacs, unspecified trimester; O09.40 - Supervision of with grand multiparity, unspecified trimester Status: Acute (3) Anemia affecting fourth ICD Codes: O99.019 - Anemia complicating , unspecified trimester; O09.40 - Supervision of with grand multiparity, unspecified trimester Status: Acute Assessment and Plan 36-year-old at 32/0 who presented with anemia, had shortness of breath. Shortness of breath has been improved with DuoNeb treatment. Psychogenic vs asthma induced. Negative CT angiography, negative lower extremity US. BPP performed following deceleration. Reported to score 8 and 6. -2 doses betamethasone administered -FHT monitoring -Category 2, continue monitoring -rare contractions, IV fluids administered DW Dr. Landon Addendum: Per MFM recommendations -If NSTs were reactive, continue twice weekly testing -if nonreactive NSTs repeat BPP tomorrow -daily kick counts Gabriel Duron MD R1 May 15, 2017 10:07
[2017-05-15] MEDS ORDERED: LACTATED RINGER'S 1000 ML INJ 1,000 ML IV SCH (10:25)
--- NOTE | 2017-05-15 10:55 | EKG ---
Date Performed: 05/14/2017 Time Performed: 18:48:34 PTAGE: 36 years EKG: Sinus rhythm LOW QRS VOLTAGE IN PRECORDIAL LEADS NONSPECIFIC T-WAVE ABNORMALITY BORDERLINE ECG NO PREVIOUS TRACING DOCTOR: Ja Roberto Interpretating Date/Time 05/15/2017 10:51:39
--- NOTE | 2017-05-15 14:12 | HHI.DCPOC ---
Discharge Care Plan Diagnosis: (1) Shortness of breath during (2) 33 weeks gestation of (3) Twin gestation with fourth (4) Anemia affecting fourth Report Symptoms to Your Doctor -Temperature above 100.5 degrees -Redness, of incision or excessive or foul smelling drainage -Unusual pain or calf pain -Increased vaginal bleeding -Painful or difficulty urinating -Feelings of extreme sadness or anxiety after 2 weeks Goals to Promote Your Health * To prevent worsening of your condition and complications * To maintain your health at the optimal level Directions to Meet Your Goals Take your medications as prescribed Follow your dietary instruction Follow activity as directed Ensure plenty of rest for recovery Drink fluids for hydration Keep your appointments as scheduled Take your immunizations and boosters as scheduled If your symptoms worsen call your PCP, if no PCP go to Urgent Care Center or Emergency Room Smoking is Dangerous to Your Health. Avoid second hand smoke Call the 24-hour crisis hotline for domestic abuse at Gabriel Duron MD R1 May 15, 2017 14:12
[2017-05-15] MEDS ORDERED: ALBUAER3 INH (14:36)
== END 2017-05-15 15:39 | disposition home or self-care (01) ==
LOC: HOBED 14:07 → H2EA 16:52
PROVIDERS: ADMIT Obstetrics & Gynecology; ATTEND Obstetrics & Gynecology
DX: O99.513 Diseases of the respiratory system complicating pregnancy, third trimester (principal); R06.03 Acute respiratory distress; O99.013 Anemia complicating pregnancy, third trimester; Z3A.33 33 weeks gestation of pregnancy; O26.893 Other specified pregnancy related conditions, third trimester; R00.0 Tachycardia, unspecified; O99.283 Endocrine, nutritional and metabolic diseases complicating pregnancy, third trimester; E04.1 Nontoxic single thyroid nodule; O30.003 Twin pregnancy, unspecified number of placenta and unspecified number of amniotic sacs, third trimester
CPT/HCPCS: 59025; 71275; 76819; 76820; 80053; 81001; 82570; 83540; 83550; 84156; 84550; 85027; 93005; 93970; 94640; 94664; 96372; 96374; 99285; G0378; J0702; J7120; Q9967

== ENCOUNTER → 2017-05-27 | Outpatient (CLI) | payer MEDICAID ==
[~2017-05-27] MED LIST changes: +ALBUAER3 INH
== END ==
LOC: HPND 10:39
PROVIDERS: ATTEND Obstetrics & Gynecology
DX: O30.043 Twin pregnancy, dichorionic/diamniotic, third trimester (principal)
CPT/HCPCS: 76816

== ENCOUNTER 2017-06-07 02:34 | Emergency (ER) | payer MEDICAID ==
--- NOTE | 2017-06-07 04:39 | PD ---
HPI Chief Complaint vaginal pressure, mucus Travel History International Travel<30 Days: No Contact w/Intl Traveler<30Days: No Known Affected Area: No History of Present Illness HPI 36-year-old 003, IUP at 35 weeks care complicated by twin gestation, asthma, anemia The patient presents complaining of the onset of passage of mucus and vaginal pressure at 11:30 PM. She denies any regular or frequent painful contractions. She reports good movement. There are no aggravating or alleviating factors to the pressure. She thinks she has passed her mucous plug. There is no vaginal bleeding. There is no leaking of fluid. She has no other obstetrical complaints today. Weeks Gestation: 35 Para: 3 : 4 History Past Medical History Narrative Medical Asthma, anemia Obstetric History Obstetric History 003 3 Past Surgical History Surgical History: No Previous Surgery Family History Family History: Negative Social History Alcohol Use: No Tobacco Use: No Substance Abuse: No Allergies-Medications (Allergen,Severity, Reaction): Coded Allergies: shellfish derived (Verified Allergy, Severe, throat swelling, 04/22/17) Uncoded Allergies: brazil nuts (Allergy, Severe, facial swelling, 04/22/17) Home Meds Active Scripts Albuterol 8.5 GM Inh (Proair Hfa 8.5 GM Inh) 90 Mcg/Act Aer, 2 PUFF INH Q4-6H Y for SHORTNESS OF BREATH, #1 INHALER 0 Refills 108 mcg/actuation Prov:Gabriel Duron MD R1 05/15/17 Albuterol Sulfate (Proventil Ud 0.083% (2.5 Mg/3 Ml)) 2.5 Mg/3 Ml Inha, 2.5 MG INH Q6 for WHEEZING, #30 Prov:Artur Back MD 07/29/13 Albuterol Sulfate (Proventil Hfa) 6.7 Gm Aero, 2 PUFF INH Q4 Y for WHEEZING, #1 * SHAKE WELL BEFORE USE * Prov:Artur Back MD 07/29/13 Reported Medications Albuterol Sulfate (Proventil Ud 0.083% (2.5 Mg/3 Ml)) 2.5 Mg/3 Ml Inha, 2.5 MG INH Q4, #30 BOX 07/29/13 Budesonide (Inhalation) (Pulmicort Flexhaler) 90 Mcg Inh 07/29/13 Albuterol Sulfate 8 GM Inhaler (Ventolin Hfa) 8 Gm Aero, 2 PUFF INH Q4, #1 BOX * SHAKE WELL BEFORE USE * 07/29/13 Review of Systems Except as stated in HPI: all other systems reviewed are Neg Physical Exam Narrative GENERAL: Well-nourished, well-developed patient. SKIN: Warm and dry. HEAD: Normocephalic and atraumatic. EYES: No scleral icterus. No injection or drainage. ENT: No nasal drainage noted. Mucous membranes pink. Airway patent. NECK: Supple, trachea midline. No JVD. CARDIOVASCULAR: Regular rate and rhythm without murmurs, gallops, or rubs. RESPIRATORY: Breath sounds equal bilaterally. No accessory muscle use. BREASTS: Deferred ABDOMEN/GI: Abdomen soft, non-tender, bowel sounds present, no rebound, no guarding Gravid GENITOURINARY: External Genitalia: intact and normal in appearance, grossly normal BUS, grossly normal rugae, physiologic discharge, no cervical or vaginal masses appreciated, SVE as per EMR. FHT's: heart tones in the 130s for fetus a and 140s for fetus B both with moderate long-term variability, good accelerations, no decelerations noted. Both fetuses had a biophysical profile of 8/8 for a total score of 10/10. EXTREMITIES: No cyanosis or edema. BACK: Nontender without obvious deformity. NEUROLOGICAL/musculoskeletal: Awake and alert. Motor and sensory grossly within normal limits. Grossly normal Five out of 5 muscle strength in all muscle groups. Normal speech. Grossly normal range of motion, gait Psychiatric: Grossly normal memory and affect MDM Plan Assessment/plan: 1. IUP at 35 weeks 2. Twin IUP 3. Asthma no issues 4. Anemia 5. Passage of mucus and vaginal pressure: Reassurance was given to the patient , no evidence of labor at this time, labor precautions. 6. well-being: Reassuring testing with reactive NST and biophysical profiles of 10/10 for both fetuses. FHR is reassuring and appropriate for gestational age. kick counts daily. 7. Follow up with primary OB in 2-3 days or sooner if needed Patient Instructions: General Instructions Additional Instructions: DRINK PLENTY OF WATER DURING THE DAY, RETURN IF LEAKING FLUID, VAGINAL BLEEDING , STRONG CONTRACTIONS OR DECREASE IN MOVEMENT. FOLLOW UP WITH YOUR OB DR IN AM AND KEEP ALL UPCOMING OB APPTS. Departure Forms: Tests/Procedures Dayami Posada MD Jun 07, 2017 04:39
--- NOTE | 2017-06-07 06:18 | PD ---
History of Present Illness History of Present Illness BPP/NST report Indications: Twin IUP at 35w, asthma NST: Fetus A with heart rate baseline in the 130s with moderate alf variability, good accels, and no decels with a category 1 heart rate tracing and reactive NST. Fetus B with heart rate baseline in the 140s with moderate director long term care variability, good accels, and no decels with a category 1 heart rate tracing and reactive NST. BPP: Fetus A and Fetus B with meet criteria for biophysical profile of 10/22. Both fetuses were individually assessed with greater than 30 seconds breathing movements, multiple episodes of flexion/extension, multiple episodes of body movement, and all 4 quadrants had adequate pockets of fluid, all 4 quadrants had fluid pockets greater than 2.2. 4 quadrants measured 4.98, 8.25, 4.84, 6.34. Final diagnosis: Twin IUP at 35 weeks, reassuring testing, asthma Follow-up: Follow-up as clinically indicated Dayami Posada MD Jun 07, 2017 06:18
== END 2017-06-07 05:30 | disposition home or self-care (01) ==
LOC: HOBED 02:34
DX: O26.893 Other specified pregnancy related conditions, third trimester (principal); O30.003 Twin pregnancy, unspecified number of placenta and unspecified number of amniotic sacs, third trimester; O99.513 Diseases of the respiratory system complicating pregnancy, third trimester; O99.013 Anemia complicating pregnancy, third trimester; Z3A.35 35 weeks gestation of pregnancy
CPT/HCPCS: 76815

== ENCOUNTER 2017-06-17 14:12 | Emergency (ER) | payer MEDICAID ==
[2017-06-17] VITALS (10 sets, daily range): PULSE 87–101
--- NOTE | 2017-06-17 14:39 | PD ---
HPI Chief Complaint prolonged monitoring per OB Diagnostics Date Seen: Jun 17, 2017 Time Seen: 14:31 Travel History International Travel<30 Days: No Contact w/Intl Traveler<30Days: No History of Present Illness HPI 36-year-old , IUP at 37 and 6/7 weeks gestation. EDC 07/02/2017. complicated by di-di twin gestation, asthma, anemia. She was sent over from routine OB diagnostic visit after variable deceleration noted in Twin B. She feels well and denies denies leakage of fluid, vaginal bleeding, and contractions. She feels baby moving regularly. She denies [place]/N/V/D/fever/sick contacts/SOB/calf pain/dizziness/seeing spots. OB care is with [facility]. Strip reviewed from OB Diagnostics showing one-minute variable deceleration to [place] of 90bpm with today deceleration lasting one minute. She is scheduled for C section on 06/19/[address] Landon. *NOTE: most recent OB Diagnostic report has wrong EDC listed. History Past Medical History Narrative Medical Asthma Anemia, has received iron infusion in the past Obstetric History Obstetric History 3 Past Surgical History Surgical History: No Previous Surgery Family History Family History: Negative Social History Alcohol Use: No Tobacco Use: No Substance Abuse: No Allergies-Medications (Allergen,Severity, Reaction): Coded Allergies: shellfish derived (Verified Allergy, Severe, throat swelling, 04/22/17) Uncoded Allergies: brazil nuts (Allergy, Severe, facial swelling, 04/22/17) Home Meds Active Scripts Albuterol 8.5 GM Inh (Proair Hfa 8.5 GM Inh) 90 Mcg/Act Aer, 2 PUFF INH Q4-6H Y for SHORTNESS OF BREATH, #1 INHALER 0 Refills 108 mcg/actuation Prov:Gabriel Duron MD R1 05/15/17 Albuterol Sulfate (Proventil Ud 0.083% (2.5 Mg/3 Ml)) 2.5 Mg/3 Ml Inha, 2.5 MG INH Q6 for WHEEZING, #30 Prov:Artur Back MD 07/29/13 Albuterol Sulfate (Proventil Hfa) 6.7 Gm Aero, 2 PUFF INH Q4 Y for WHEEZING, #1 * SHAKE WELL BEFORE USE * Prov:Artur Back MD 07/29/13 Reported Medications Albuterol Sulfate (Proventil Ud 0.083% (2.5 Mg/3 Ml)) 2.5 Mg/3 Ml Inha, 2.5 MG INH Q4, #30 BOX 07/29/13 Budesonide (Inhalation) (Pulmicort Flexhaler) 90 Mcg Inh 07/29/13 Albuterol Sulfate 8 GM Inhaler (Ventolin Hfa) 8 Gm Aero, 2 PUFF INH Q4, #1 BOX * SHAKE WELL BEFORE USE * 07/29/13 Review of Systems Except as stated in HPI: all other systems reviewed are Neg Physical Exam Narrative GENERAL: Well-nourished, well-developed patient. SKIN: Warm and dry. HEAD: Normocephalic and atraumatic. EYES: No scleral icterus. No injection or drainage. ENT: No nasal drainage noted. Mucous membranes pink. Airway patent. NECK: Supple, trachea midline. No JVD. CARDIOVASCULAR: Regular rate and rhythm without murmurs, gallops, or rubs. RESPIRATORY: Breath sounds equal bilaterally. No accessory muscle use. BREASTS: Deferred ABDOMEN/GI: Abdomen soft, non-tender, bowel sounds present, no rebound, no guarding Gravid GENITOURINARY: deferred FHT's: heart tones in the 130s for fetus A and 140s for fetus B both with moderate long-term variability, good accelerations, no decelerations noted. EXTREMITIES: No cyanosis or, 1+ bilateral edema. BACK: Nontender without obvious deformity. NEUROLOGICAL/musculoskeletal: Awake and alert. Motor and sensory grossly within normal limits. Grossly normal Five out of 5 muscle strength in all muscle groups. Normal speech. Grossly normal range of motion, gait Psychiatric: Grossly normal memory and affect Data Data Vital Signs Reviewed: Yes (BP 139/68, P 95, R 18, T 98f) MDM Medical Record Reviewed: Yes Narrative Course / MDM Patient is 36 year old , IUP at 37 and 6/7 weeks, EDC 07/02/2017 who presents from OB diagnostics for further monitoring. [facility]. A/P 1. IUP at 36 weeks 2. Twin IUP 3. Asthma no issues 4. Anemia - PNV, no issues 5. well-being: Reassuring testing with reactive NST x 2 hr. FHR is reassuring and appropriate for gestational age. kick counts daily. 6. Follow up with primary OB in 2-3 days or sooner if needed 7. Scheduled for C section with Dr. Landon on 06/19/2017 Seen and discussed with Dr. Landon Diagnosis Diagnosis: Primary Impression: Twin gestation, dichorionic diamniotic Disposition: 01 DISCHARGE HOME Condition: Stable Patient Instructions: Diet (GEN), Early Labor Signs (ED) Danay Myles MD Jun 17, 2017 14:39
== END 2017-06-17 16:48 | disposition home or self-care (01) ==
LOC: HOBED 14:12
DX: O30.043 Twin pregnancy, dichorionic/diamniotic, third trimester (principal); O99.513 Diseases of the respiratory system complicating pregnancy, third trimester; J45.909 Unspecified asthma, uncomplicated; O99.013 Anemia complicating pregnancy, third trimester; Z3A.37 37 weeks gestation of pregnancy
CPT/HCPCS: 59025

== ENCOUNTER 2017-06-19 08:44 | Inpatient (IN) | payer MEDICAID ==
--- NOTE | 2017-06-12 14:25 | PD.CONS ---
History & Physical H&P cc: di/di twins, breech hpi: pt. is a 36 y/0 @ 37 weeks w/ did/di twins and breech presentation. pt. has h/o x 3. pt. also w/ fe deficient anemia. pt. w/o c /o. +FM x 2, no ctxs, no vb/lof pmhx: anemia, has received iron transfusion in the past. pobhx: , x 3 Psurghx: none SocHx: denies smoking, illicit, etoh, from the Phthisis Diagnostics ros: all 12 system ros - Meds: reviewed A/p: pt. is a 36 y/o @ 37 weeks w/ di/di twin iup and breech presentation. cd of twins d/w pt. risks/benefits and alternatives d/w pt. all ? answered. ~ 30 mins spent w/ pt and 50% of time in counseling. Alex Landon Jr., MD Jun 12, 2017 14:25
[~2017-06-19] VITALS: Ht 157.5 cm; Wt 107.0 kg
[2017-06-19] MEDS ORDERED: LACTATED RINGER'S 1000 ML INJ 1,000 ML IV ONE ×2 (09:41→12:00)
[2017-06-19] MEDS ORDERED: PREN29TA PO (09:44)
[2017-06-19] MEDS ORDERED: FERR325T18 PO (09:45)
[2017-06-19 09:58] LABS: AUTOMATED NEUTROPHIL # 4.8 TH/MM3 (1.8-7.7); BASOPHIL % 0.1 % (0.0-2.0); EOSINOPHIL % 0.5 % (0.0-4.0); HEMOGLOBIN 8.9 GM/DL (11.6-15.3); LYMPH % 17.1 % (9.0-44.0); LYMPHOCYTE # 1.1 TH/MM3 (1.0-4.8); MEAN CELL VOLUME 74.7 FL (80.0-100.0); MEAN CORPUSCULAR HEMOGLOBIN 24.4 PG (27.0-34.0); MEAN CORPUSCULAR HGB CONC 32.7 % (32.0-36.0); MEAN PLATELET VOLUME 8.9 FL (7.0-11.0); MONO % 9.3 % (0.0-8.0); MONOCYTE # 0.6 TH/MM3 (0-0.9); PLATELET COUNT 238 TH/MM3 (150-450); RED BLOOD COUNT 3.62 MIL/MM3 (4.00-5.30); RED CELL DISTRIBUTION WIDTH 23.9 % (11.6-17.2); WHITE BLOOD COUNT 6.6 TH/MM3 (4.0-11.0)
[2017-06-19] MEDS ORDERED: ACETAMINOPHEN 1000 MG/100 ML 100 ML IV ONE (10:06)
[2017-06-19] MEDS ORDERED: MORPHINE SULFATE PF 5 MG/10 ML VIAL ONE (10:06)
[2017-06-19 10:20] LABS: BILIRUBIN, URINE NEG (NEG); BLOOD, URINE NEG (NEG); GLUCOSE,URINE NEG (NEG); KETONE, URINE NEG (NEG); MUCUS URINE FEW /lpf (OCC); NITRITE,URINE NEG (NEG); PH, URINE 6.5 (5.0-8.5); SQUAMOUS EPITHELIAL CELL URINE 2 /hpf (0-5); URINE COLOR YELLOW (YELLW/STRAW); URINE LEUKOCYTE ESTERASE NEG (NEG)
[2017-06-19] MEDS: LACTATED RINGER'S 1000 ML INJ 1,000 ML IV SCH (10:30)
[2017-06-19] MEDS ORDERED: CITRIC ACID-SODIUM CITRATE LIQ 30 ML UDC PO SCH (11:15)
[2017-06-19] MEDS ORDERED: CEFAZOLIN INJ 2,000 MG in SODIUM CHLORIDE 0.9% INJ 100 ML IV SCH (11:15)
[2017-06-19] MEDS ORDERED: ceFAZolin 2 GM PREMIX 50 ML IV SCH (11:15)
[2017-06-19] MEDS ORDERED: ePHEDrine/NS 25 MG/5 ML SYRINGE IV ONE (12:00)
[2017-06-19] MEDS ORDERED: OXYTOCIN 10 UNIT/ML AMP IV ONE (12:00)
[2017-06-19] MEDS ORDERED: DEXAMETHASONE SOD PHOS 4 MG/ML VIAL IV ONE (12:00)
[2017-06-19] MEDS ORDERED: PROPOFOL 200 MG/20 ML AMP IV ONE (12:00)
[2017-06-19] MEDS ORDERED: STERILE WATER FOR INJECTION 20 ML VIAL IV ONE (12:00)
[2017-06-19] MEDS ORDERED: PHENYLEPH/NS 1000 MCG/10 ML SYR IV ONE (12:00)
[2017-06-19] MEDS ORDERED: ceFAZolin INJ 1,000 MG VIAL IV ONE (12:00)
[2017-06-19] MEDS ORDERED: ONDANSETRON HCL 4 MG/2 ML VIAL IV ONE (12:00)
[2017-06-19] MEDS ORDERED: LIDOCAINE HCL 1% PF 5 ML SYRINGE OTHER ONE (12:00)
[2017-06-19] MEDS ORDERED: LIDOCAINE 2%/EPINEPHrine PF 1:200,000 20ML SDV OTHER ONE (12:00)
[2017-06-19] MEDS ORDERED: SODIUM CHLORIDE 0.9% FLUSH 10 ML FLUSH IV FLUSH PRN (12:15)
[2017-06-19] MEDS ORDERED: KETOROLAC TROMETHAMINE 30 MG/ML (IVP) VIAL IV PUSH PRN (12:15)
[2017-06-19] MEDS ORDERED: oxyCODONE/ACETAMINOPHEN 5 MG/325 MG TAB PO PRN (12:15)
[2017-06-19] MEDS ORDERED: SIMETHICONE 80 MG CHEWABLE TAB PO PRN (12:15)
[2017-06-19] MEDS ORDERED: ACETAMINOPHEN 325 MG TAB PO PRN (12:15)
[2017-06-19] MEDS ORDERED: ONDANSETRON HCL 4 MG/2 ML VIAL IV PUSH PRN (12:15)
[2017-06-19] MEDS ORDERED: OXYTOCIN 30 UNITS-500ML PREMIX 500 ML IV ONE (12:15)
--- NOTE | 2017-06-19 12:38 | PD.OB.DELI ---
Procedure Note Section Procedure Pre Op Diagnosis: (1) Dichorionic diamniotic twin gestation (2) 38 weeks gestation of (3) Breech Post Op Diagnosis: (1) Breech (2) Dichorionic diamniotic twin gestation (3) 38 weeks gestation of Performed by Alex Landon Procedure: Primary Low Transverse Sec Indication for delivery: Other Informed consent obtained: For procedure Confirmed correct: Patient, Time-out taken Anesthesia: Spinal Medication prior to procedure: As documented in eMAR, Antacids, Antibiotics, IV Monitoring during procedure: Blood pressure monitoring, traffic monitor specialist, Pulse oximetry Urinary catheter: Inserted using sterile technique Sterile preparation: In usual fashion Position: Supine with wedge to left side Operative Features Skin Incision: Pfannenstiel Uterine Incision: Low transverse w/knife / blunt ext Membranes Ruptured: Artificially Presentation: Breech, Other Delivery date: Jun 19, 2017 Delivery time: 11:13 Delivery of infant: Uneventful : Male, Female, Multiple One Minute : 8 Five Minute : 8 Weight: 2780 [id number] Status of infant: Viable Placenta delivered: Intact Medications: Antibiotics Estimated blood loss: 800cc Procedure tolerated: Well Maternal Condition: Stable Condition: Stable Procedure in detail pt. was taken to or w/ ivf running. pt. was identified and prepped and draped in the usual sterile fashion. pt. spinal anesthesia was tested and found to be adequate. pfan skin incision performed and carried to underlying layer of fascia w/ the bovie. fascia incised in midline and extended. shereen clamps were used to grasp superior aspect of the fascial incision and the underlying rectus muscles were dissected bluntly and sharply. the rectus muscles were in the midline and the parietal peritoneum was entered bluntly and extended superiorly and inferiorly w/ good visual of the bladder. the lower uterine segment was incised and extende bluntly. arom was permrmed and baby a was noted in complete breech and delivered w/o diff. cord was clamped and cut and baby handed to awaiting rescus team. baby b was noted in complete breech and breech extraction was performed w/o diff. cord was clamped and cut and baby handed to waiting rescus team. cord bloos were obtained. placentas delivered w/o diff. uterus could not be easily exteriorized. it was cleared of clots and debris and was sutured in a single layer in a running fashion w/ # 1 vicryl. a 2nd #1 was used to perform an embricating layer. the uterine incision was noted to be hemostatic and the bladder flap was reapprox w/ plain gut suture. the pelvis was copiously irrigated and cleared of clots and debris. the parietal peritoneum was reapprox w/ plain gut. the sub fascial tissues were noted to be hemostatic and rectus fascia was reapprox w/ 0 vicryl in a running fashion. the subq tissues were hemostatic and reapprox w/ plain gut suture. the skin was closed w/ leslie. sponge, lap and needle counts were correct x 2. pt. tranferred to pacu in stable condition. baby a: delivery:1113, 10/22 2780 gms, baby b:delivery: 1117, 04/25 2435 gms Alex Landon Jr., MD Jun 19, 2017 12:38
[2017-06-19] MEDS ORDERED: OXYTOCIN 30 UNITS-500ML PREMIX 500 ML ONE (13:07)
[2017-06-19] MEDS ORDERED: EPIDURAL-NO SYSTEMIC NARCOTICS PRN (14:15)
[2017-06-19] MEDS ORDERED: EPIDURAL-DIPHENHYDRAMINE HCL 50 MG/ML VIAL IV PUSH PRN (14:15)
[2017-06-19] MEDS ORDERED: EPIDURAL-DO NOT ADMINISTER ANTICOAGULANTS PRN (14:15)
[2017-06-19] MEDS ORDERED: EPIDURAL-NALOXONE HCL 0.4 MG/ML AMP IV PUSH PRN (14:15)
[2017-06-19] MEDS ORDERED: LACTATED RINGER'S 1000 ML INJ 1,000 ML IV SCH (17:08)
[2017-06-19] MEDS: EPIDURAL-DIPHENHYDRAMINE HCL 50 MG CAP PO PRN ×2 (17:32→23:27)
[2017-06-19 20:10] VITALS: BP 105/68; PULSE 83; RESP 17; TEMP 98; O2SAT 97
[2017-06-19] MEDS ORDERED: OXYTOCIN 30 UNITS-500ML PREMIX 500 ML IV PRN (22:15)
[2017-06-19] MEDS: IBUPROFEN 600 MG TAB PO PRN (23:27)
[2017-06-19] MEDS: DOCUSATE SODIUM 50 MG/SENNA 8.6 MG TAB PO PRN (23:27)
[2017-06-19 23:52] VITALS: BP 83/42; PULSE 87; RESP 18; TEMP 98.3
[2017-06-20 04:01] VITALS: BP 93/54; PULSE 69; RESP 18; TEMP 98.1
[2017-06-20 05:57] LABS: AUTOMATED NEUTROPHIL # 11.8 TH/MM3 (1.8-7.7); BASOPHIL % 0.2 % (0.0-2.0); EOSINOPHIL % 0.1 % (0.0-4.0); HEMATOCRIT 21.9 % (35.0-46.0); LYMPH % 10.8 % (9.0-44.0); LYMPHOCYTE # 1.6 TH/MM3 (1.0-4.8); MEAN CELL VOLUME 74.7 FL (80.0-100.0); MEAN CORPUSCULAR HEMOGLOBIN 23.5 PG (27.0-34.0); MEAN CORPUSCULAR HGB CONC 31.4 % (32.0-36.0); MONOCYTE # 1.5 TH/MM3 (0-0.9); NEUT % 78.9 % (16.0-70.0); PLATELET COUNT 199 TH/MM3 (150-450); RED BLOOD COUNT 2.93 MIL/MM3 (4.00-5.30); RED CELL DISTRIBUTION WIDTH 23.6 % (11.6-17.2)
[2017-06-20 06:22] LABS: HEMOGLOBIN 6.9 GM/DL (11.6-15.3)
--- NOTE | 2017-06-20 09:02 | HHI.OB ---
Subjective Post Operative Day: 1 Remarks Postoperative day # 1 after primary CS for twins. AFVSS overnight. Incision not draining, pressure dressing in place. Decreased lochia. Denies dysuria. No breast tenderness. She is feeding the babies via breast. Appetite good. No nausea or vomiting. Patient has not yet had a bowel movement. Ambulating well. Denies calf pain or shortness of breath. Otherwise, she is doing well this morning and has no other concerns. Objective Vitals/I&O Vital Signs Date Time Temp Pulse Resp B/P (MAP) Pulse Ox O2 Delivery O2 Flow Rate FiO2 06/20/17 04:01 98.1 69 18 93/54 (67) 06/19/17 23:52 98.3 87 18 83/42 (56) 06/19/17 20:10 83 17 105/68 (80) 06/19/17 20:10 98.0 97 Result Diagram: 06/20/17 0501 Objective Remarks GENERAL: Well-nourished, well-developed patient. CARDIOVASCULAR: Regular rate and rhythm without murmurs, gallops, or rubs. RESPIRATORY: Breath sounds equal bilaterally. No accessory muscle use. ABDOMEN/GI: Abdomen soft, non-tender, bowel sounds present. Incision: Clean, dry and intact. Pressure dressing in place. Fundus: Firm, non-tender at umbilicus. GENITOURINARY: Light to moderate bleeding. EXTREMITIES: No cyanosis or edema, non-tender, without signs of DVT. Medications and IVs Current Medications Medications (Trade) Dose Ordered Sig/[place] Route Start Time Stop Time Status Last Admin Lactated Ringer's 1,000 ml @ 150 mls/hr Q6H40M IV 06/19/17 10:11 06/19/17 10:30 Lactated Ringer's 1,000 ml @ 100 mls/hr Q10H IV 06/19/17 17:08 06/20/17 13:07 06/19/17 17:32 Oxytocin 500 ml @ 100 mls/hr UNSCH X1 PRN IV 06/19/17 22:15 06/20/17 22:14 (NS Flush) 2 ml BID IV FLUSH 06/19/17 21:00 (NS Flush) 2 ml UNSCH PRN IV FLUSH 06/19/17 12:15 (Mylicon Chew) 80 mg QID PRN PO 06/19/17 12:15 (Tylenol) 650 mg Q6H PRN PO 06/19/17 12:15 (Motrin) 600 mg Q6H PRN PO 06/19/17 12:15 06/19/17 23:27 (Percocet 5-325 Mg) 1 tab Q4H PRN PO 06/19/17 12:15 (Percocet 5-325 Mg) 2 tab Q4H PRN PO 06/19/17 12:15 (Mallorie-Colace) 2 tab Q12H PRN PO 06/19/17 12:15 06/19/17 23:27 (M-M-R Ii Inj) 0.5 ml ONCE ONCE SQ 06/20/17 16:00 06/20/17 16:01 (Boostrix Inj) 0.5 ml ONCE ONCE IM 06/20/17 16:00 06/20/17 16:01 (Zofran Inj) 4 mg Q6H PRN IV PUSH 06/19/17 12:15 (Toradol Inj) 30 mg Q6H PRN IV PUSH 06/19/17 12:15 06/23/17 12:14 Miscellaneous Information NO SYSTEMIC NARCOTICS TO BE GIVEN FO... UNSCH PRN .XX 06/19/17 14:15 06/20/17 14:14 (Narcan Inj) 0.4 mg UNSCH PRN IV PUSH 06/19/17 14:15 06/20/17 14:14 (Benadryl Inj) 25 mg Q6H PRN IV PUSH 06/19/17 14:15 06/20/17 14:14 (Benadryl) 50 mg Q6H PRN PO 06/19/17 14:15 06/20/17 14:14 06/19/17 23:27 Miscellaneous Information ALL NURSING DEPARTMENTS UNSCH PRN .XX 06/19/17 14:15 06/20/17 14:14 Assessment/Plan Problem List: (1) 38 weeks gestation of ICD Codes: Z3A.38 - 38 weeks gestation of (2) Dichorionic diamniotic twin gestation ICD Codes: O30.049 - Twin , dichorionic/diamniotic, unspecified trimester (3) Breech ICD Codes: O32.1XX0 - Maternal care for breech presentation, not applicable or unspecified Assessment and Plan 36 year old female who is POD # 1 s/p primary CXN for twins. Doing well. Postoperative -Continue routine care. -Percocet and Motrin PRN pain. -Encouraged OOB. Advised pelvic rest for 6 wks. Will need a f/u appt. in 1 wk for incision check. -Re: ctrl, will discuss tomorrow -Anticipate discharge 1-2 days. Post-operative anemia -Hgb 6.9 post operatively -Pt ambulating, tired but no syncope or dizziness -Will monitor symptoms, recheck H&H if indicated, transfuse as needed DW Dr. Landon who saw patient and agrees with plan Danay Myles MD R2 Jun 20, 2017 09:02
[2017-06-20] MEDS: IBUPROFEN 600 MG TAB PO PRN ×2 (09:03→15:45)
[2017-06-20] MEDS: DOCUSATE SODIUM 50 MG/SENNA 8.6 MG TAB PO PRN (09:03)
[2017-06-20] MEDS: EPIDURAL-DIPHENHYDRAMINE HCL 50 MG CAP PO PRN (09:03)
[2017-06-20] MEDS: oxyCODONE/ACETAMINOPHEN 5 MG/325 MG TAB PO PRN ×4 (09:04→23:11)
[2017-06-20] MEDS ORDERED: DIPHTH/TETANUS/ACEL PERTUSSIS (BOOSTER) 0.5 ML VIAL/PFS IM ONE (16:00)
[2017-06-20] MEDS ORDERED: MEASLES, MUMPS, RUBELLA VACCINE 0.5 ML VIAL SQ ONE (16:00)
[2017-06-20 20:00] VITALS: BP 94/63; PULSE 84; RESP 18; TEMP 98; O2SAT 96
[2017-06-20] MEDS: SODIUM CHLORIDE 0.9% FLUSH 10 ML FLUSH IV FLUSH SCH (22:15)
[2017-06-21] VITALS (7 sets, daily range): BP systolic 87–116; BP diastolic 58–73; PULSE 76–87; RESP 18–20; TEMP 97–98.9; O2SAT 97–100
[2017-06-21 07:32] LABS: AUTOMATED NEUTROPHIL # 8.7 TH/MM3 (1.8-7.7); BASOPHIL % 0.3 % (0.0-2.0); EOSINOPHIL # 0.1 TH/MM3 (0-0.4); EOSINOPHIL % 0.5 % (0.0-4.0); HEMATOCRIT 23.5 % (35.0-46.0); HEMOGLOBIN 7.3 GM/DL (11.6-15.3); LYMPHOCYTE # 1.4 TH/MM3 (1.0-4.8); MEAN CELL VOLUME 75.1 FL (80.0-100.0); MEAN CORPUSCULAR HEMOGLOBIN 23.3 PG (27.0-34.0); MEAN CORPUSCULAR HGB CONC 31.1 % (32.0-36.0); MEAN PLATELET VOLUME 8.8 FL (7.0-11.0); MONO % 7.6 % (0.0-8.0); MONOCYTE # 0.8 TH/MM3 (0-0.9); NEUT % 78.6 % (16.0-70.0); PLATELET COUNT 236 TH/MM3 (150-450); RED BLOOD COUNT 3.13 MIL/MM3 (4.00-5.30); RED CELL DISTRIBUTION WIDTH 23.5 % (11.6-17.2)
--- NOTE | 2017-06-21 07:37 | HHI.OB ---
Subjective Post Operative Day: 2 Remarks Postoperative day # 2 after primary CS for breech twins. AFVSS overnight. She reports dizziness last night with ambulation, no syncope. Incision not draining , pressure dressing in place. Decreased lochia. Denies dysuria. No breast tenderness. She is feeding the babies via breast. Appetite good. No nausea or vomiting. Patient has had a bowel movement. Ambulating well. Denies calf pain or shortness of breath. (Danay Myles MD R2) Remarks Patient seen and evaluated with resident under direct supervision, agree with assessment and plan. (Junior Don MD) Objective Vitals/I&O Vital Signs Date Time Temp Pulse Resp B/P (MAP) Pulse Ox O2 Delivery O2 Flow Rate FiO2 06/20/17 20:00 84 18 94/63 (73) 96 06/20/17 20:00 98.0 (Danay Myles MD R2) Result Diagram: 06/20/17 0501 Objective Remarks GENERAL: Well-nourished, well-developed patient. CARDIOVASCULAR: Regular rate and rhythm without murmurs, gallops, or rubs. RESPIRATORY: Breath sounds equal bilaterally. No accessory muscle use. ABDOMEN/GI: Abdomen soft, non-tender, bowel sounds present. Incision: Clean, dry and intact. Pressure dressing in place. Fundus: Firm, non-tender at umbilicus. GENITOURINARY: Light to moderate bleeding. EXTREMITIES: No cyanosis or edema, non-tender, without signs of DVT. Medications and IVs Current Medications Medications (Trade) Dose Ordered Sig/[place] Route Start Time Stop Time Status Last Admin Lactated Ringer's 1,000 ml @ 150 mls/hr Q6H40M IV 06/19/17 10:11 06/19/17 10:30 (NS Flush) 2 ml BID IV FLUSH 06/19/17 21:00 06/20/17 22:15 (NS Flush) 2 ml UNSCH PRN IV FLUSH 06/19/17 12:15 (Mylicon Chew) 80 mg QID PRN PO 06/19/17 12:15 (Tylenol) 650 mg Q6H PRN PO 06/19/17 12:15 (Motrin) 600 mg Q6H PRN PO 06/19/17 12:15 06/20/17 15:45 (Percocet 5-325 Mg) 1 tab Q4H PRN PO 06/19/17 12:15 (Percocet 5-325 Mg) 2 tab Q4H PRN PO 06/19/17 12:15 06/20/17 23:11 (Mallorie-Colace) 2 tab Q12H PRN PO 06/19/17 12:15 06/20/17 09:03 (Zofran Inj) 4 mg Q6H PRN IV PUSH 06/19/17 12:15 (Toradol Inj) 30 mg Q6H PRN IV PUSH 06/19/17 12:15 06/23/17 12:14 06/20/17 22:11 (Danay Myles MD R2) Assessment/Plan Problem List: (1) 38 weeks gestation of ICD Codes: Z3A.38 - 38 weeks gestation of (2) Dichorionic diamniotic twin gestation ICD Codes: O30.049 - Twin , dichorionic/diamniotic, unspecified trimester (3) Breech ICD Codes: O32.1XX0 - Maternal care for breech presentation, not applicable or unspecified Assessment and Plan 36 year old female who is POD # 2 s/p primary CXN for twins. Doing well. Postoperative -Continue routine care. -Percocet and Motrin PRN pain. -Encouraged OOB. Advised pelvic rest for 6 wks. Will need a f/u appt. in 1 wk for incision check. -Re: ctrl, pt is considering Nexplanon. -Anticipate discharge tomorrow. Post-operative anemia -Hgb 6.9 post operatively -Pt ambulating, with dizziness overnight -H&H stable this AM but pt symptomatic with dizziness, pt agreeable to PRBCs, will transfuse 2units. Has chronic anemia previously requiring IV iron. -check post transfusion H&H -Restart iron pills at discharge DW Dr. Don (Danay Myles MD R2) Danay Myles MD R2 Jun 21, 2017 07:37 Junior Don MD Jun 21, 2017 09:52
[2017-06-21] MEDS: SODIUM CHLORIDE 0.9% FLUSH 10 ML FLUSH IV FLUSH SCH ×2 (09:00→19:28)
[2017-06-21] MEDS ORDERED: SODIUM CHLOR 0.9% 250 ML INJ 250 ML IV ONE (09:45)
[2017-06-21] MEDS ORDERED: ACETAMINOPHEN 325 MG TAB PO PRN (09:45)
[2017-06-21] MEDS ORDERED: diphenhydrAMINE HCL 25 MG CAP PO PRN (09:45)
[2017-06-21] MEDS: LACTATED RINGER'S 1000 ML INJ 1,000 ML IV SCH ×3 (10:07→19:27)
[2017-06-21] MEDS: IBUPROFEN 600 MG TAB PO PRN ×2 (11:24→17:28)
[2017-06-21 20:53] LABS: HEMATOCRIT 28.3 % (35.0-46.0); HEMOGLOBIN 8.9 GM/DL (11.6-15.3)
[2017-06-21] MEDS: DOCUSATE SODIUM 50 MG/SENNA 8.6 MG TAB PO PRN (21:13)
[2017-06-21] MEDS: oxyCODONE/ACETAMINOPHEN 5 MG/325 MG TAB PO PRN (21:14)
[2017-06-22 04:53] LABS: HEMATOCRIT 26.5 % (35.0-46.0); HEMOGLOBIN 8.5 GM/DL (11.6-15.3)
[2017-06-22] MEDS: oxyCODONE/ACETAMINOPHEN 5 MG/325 MG TAB PO PRN (04:53)
[2017-06-22] MEDS: IBUPROFEN 600 MG TAB PO PRN (04:53)
[2017-06-22 08:00] VITALS: BP 115/70; PULSE 82; RESP 20; TEMP 97.4
--- NOTE | 2017-06-22 08:01 | HHI.OB ---
Subjective Post Operative Day: 3 Remarks Postoperative day # 3 after primary CS for breech twins. AFVSS overnight. She is no longer dizzy with ambulation, no syncope, she feels much better. Incision not draining, pressure dressing in place to last a week. Decreased lochia. Denies dysuria. No breast tenderness. She is feeding the babies via breast and bottle. Appetite good. No nausea or vomiting. Patient has had a bowel movement. Ambulating well. Denies calf pain or shortness of breath. Objective Vitals/I&O Vital Signs Date Time Temp Pulse Resp B/P (MAP) Pulse Ox O2 Delivery O2 Flow Rate FiO2 06/21/17 19:10 98.9 85 18 100/67 100 06/21/17 16:25 98.3 85 18 114/73 99 06/21/17 16:10 98.1 76 18 116/68 100 06/21/17 13:10 97.0 84 18 87/58 97 06/21/17 12:57 97.5 87 20 97/64 98 Intake & Output 06/22/17 06/22/17 07:00 19:00 Intake Total 400 ml Balance 400 ml Packed Cells 400 ml Result Diagram: 06/22/17 0431 Objective Remarks GENERAL: Well-nourished, well-developed patient. CARDIOVASCULAR: Regular rate and rhythm without murmurs, gallops, or rubs. RESPIRATORY: Breath sounds equal bilaterally. No accessory muscle use. ABDOMEN/GI: Abdomen soft, non-tender, bowel sounds present. Incision: Clean, dry and intact. Pressure dressing in place. Fundus: Firm, moderately tender at umbilicus but not unusual. GENITOURINARY: Light to moderate bleeding. EXTREMITIES: No cyanosis or edema, non-tender, without signs of DVT. Medications and IVs Current Medications Medications (Trade) Dose Ordered Sig/[place] Route Start Time Stop Time Status Last Admin Lactated Ringer's 1,000 ml @ 150 mls/hr Q6H40M IV 06/19/17 10:11 06/19/17 10:30 (NS Flush) 2 ml BID IV FLUSH 06/19/17 21:00 06/20/17 22:15 (NS Flush) 2 ml UNSCH PRN IV FLUSH 06/19/17 12:15 (Mylicon Chew) 80 mg QID PRN PO 06/19/17 12:15 (Tylenol) 650 mg Q6H PRN PO 06/19/17 12:15 (Motrin) 600 mg Q6H PRN PO 06/19/17 12:15 06/22/17 04:53 (Percocet 5-325 Mg) 1 tab Q4H PRN PO 06/19/17 12:15 06/22/17 04:54 (Percocet 5-325 Mg) 2 tab Q4H PRN PO 06/19/17 12:15 06/21/17 21:14 (Mallorie-Colace) 2 tab Q12H PRN PO 06/19/17 12:15 06/21/17 21:13 (Zofran Inj) 4 mg Q6H PRN IV PUSH 06/19/17 12:15 (Toradol Inj) 30 mg Q6H PRN IV PUSH 06/19/17 12:15 06/23/17 12:14 06/20/17 22:11 Assessment/Plan Problem List: (1) 38 weeks gestation of ICD Codes: Z3A.38 - 38 weeks gestation of (2) Dichorionic diamniotic twin gestation ICD Codes: O30.049 - Twin , dichorionic/diamniotic, unspecified trimester (3) Breech ICD Codes: O32.1XX0 - Maternal care for breech presentation, not applicable or unspecified Assessment and Plan 36 year old female who is POD # 3 s/p primary CXN for twins. Doing well. Postoperative -Continue routine care. -Percocet and Motrin PRN pain. -Encouraged OOB. Advised pelvic rest for 6 wks. Will need a f/u appt. in 1 wk for incision check. -Re: ctrl, pt is considering Nexplanon. Post-operative anemia -Hgb 6.9 post operatively -S/P 2 units PRBC yesterday; H/H 8.5/26.5 this am -Restart ferrous sulfate 325mg PO BID RENATE Landon Discharge Planning Discharge home today Ingrid Farley MD R2 Jun 22, 2017 08:01
[2017-06-22] MEDS ORDERED: OXYC1TAB63 PO (08:46)
[2017-06-22] MEDS ORDERED: IBUP1TAB7 PO (08:46)
--- NOTE | 2017-06-22 08:48 | HHI.DCPOC ---
Discharge Care Plan Diagnosis: (1) Dichorionic diamniotic twin gestation (2) 38 weeks gestation of (3) Breech (4) Chronic anemia Report Symptoms to Your Doctor -Temperature above 100.5 degrees -Redness, of incision or excessive or foul smelling drainage -Unusual pain or calf pain -Increased vaginal bleeding -Painful or difficulty urinating -Feelings of extreme sadness or anxiety after 2 weeks Goals to Promote Your Health * To prevent worsening of your condition and complications * To maintain your health at the optimal level Directions to Meet Your Goals Take your medications as prescribed Follow your dietary instruction Follow activity as directed Ensure plenty of rest for recovery Drink fluids for hydration Keep your appointments as scheduled Take your immunizations and boosters as scheduled If your symptoms worsen call your PCP, if no PCP go to Urgent Care Center or Emergency Room Smoking is Dangerous to Your Health. Avoid second hand smoke Call the 24-hour crisis hotline for domestic abuse at Ingrid Farley MD R2 Jun 22, 2017 08:48
[2017-06-22] MEDS ORDERED: FERROUS SULFATE 325 MG (65 MG ELEMENTAL IRON) TAB PO SCH (09:00)
[2017-06-22] MEDS ORDERED: FERR325T20 PO (11:14)
[2017-06-22] MEDS: SODIUM CHLORIDE 0.9% FLUSH 10 ML FLUSH IV FLUSH SCH (11:17)
== END 2017-06-22 12:59 | disposition home or self-care (01) | DRG 765 ==
LOC: H2EB 08:44 → H1EA 14:22 → HNUR 19:25 → H1EA 19:55
PROVIDERS: ADMIT Obstetrics & Gynecology; ATTEND Obstetrics & Gynecology
PROC: 10D00Z1 Extraction of Products of Conception, Low, Open Approach (ICD-10-PCS; principal; 2017-06-19)
PROC: 30233N1 Transfusion of Nonautologous Red Blood Cells into Peripheral Vein, Percutaneous Approach (ICD-10-PCS; 2017-06-21)
DX: O32.1XX0 Maternal care for breech presentation, not applicable or unspecified (principal); O30.043 Twin pregnancy, dichorionic/diamniotic, third trimester; D50.9 Iron deficiency anemia, unspecified; O99.02 Anemia complicating childbirth; Z37.2 Twins, both liveborn; Z3A.38 38 weeks gestation of pregnancy; Z23 Encounter for immunization
CPT/HCPCS: 36430; 59025; 80307; 81001; 85014; 85018; 85025; 86850; 86900; 86901; 86920; 88307; 90707; 90715; J0131; J0690; J1100; J1885; J2274; J2370; J2405; J2590; J7120; P9016; Q0163